=== PATIENT | male | born 1945 | race Caucasian/White ===

== ENCOUNTER 2018-07-03 12:57 | Inpatient (IN) | payer OTHER ==
[2018-07-03 10:41] VITALS: BMI 30.7
[2018-07-04] MEDS ORDERED: ROCURONIUM BROMIDE 50 MG/5 ML VIAL ONE ×2 (09:20→12:33)
[2018-07-04] MEDS ORDERED: PROPOFOL 20 ML ONE ×3 (09:20→14:35)
[2018-07-04] MEDS ORDERED: MIDAZOLAM HCL 2 MG/2 ML SINGLE DOSE VIAL ONE (09:20)
[2018-07-04] MEDS ORDERED: LIDOCAINE HCL/PF 2% SDV 5ML VIAL ONE (09:21)
[2018-07-04] MEDS ORDERED: BUPIVACAINE LIPOSOME/PF (EXPAREL) 266 MG/20 ML VIAL NR ONE ×3 (09:30→14:22)
--- NOTE | 2018-07-04 10:12 | HP ---
History & Physical Update - History History: No Change - Physical Physical: No Change - Assessment Assessment: No Change - Plan Plan: No Change (no change since visit with garbage pick up worker on 06/27/18)
[2018-07-04] MEDS ORDERED: morphine SULFATE/Preservative Free 0.5 MG/ML (1cc Syringe) ONE (10:19)
[2018-07-04] MEDS ORDERED: VANCOMYCIN 1,000 MG VIAL (RESTRICTED TO ID ONLY) ONE ×2 (10:45→11:09)
[2018-07-04] MEDS ORDERED: SODIUM CHLORIDE 0.9% P/F 10 ML VIAL IJ ONE ×3 (11:05→14:18)
[2018-07-04] MEDS ORDERED: ceFAZolin SODIUM 1 GM VIAL ONE ×2 (11:05→14:18)
[2018-07-04] MEDS ORDERED: ePHEDrine SULFATE 50 MG/1 ML AMPULE ONE ×2 (11:06→13:09)
[2018-07-04] MEDS ORDERED: ceFAZolin SODIUM 1 GM VIAL IVPB ONE (11:08)
[2018-07-04] MEDS ORDERED: VANCOMYCIN 1,000 MG VIAL (RESTRICTED TO ID ONLY) IVPB ONE (11:10)
[2018-07-04] MEDS ORDERED: LIDOCAINE 1%/EPI 1:100000 (50 ML MULTI DOSE VIAL) NR ONE (11:12)
[2018-07-04] MEDS ORDERED: THROMBIN (BOVINE) 5,000 UNIT VIAL TP ONE (11:25)
[2018-07-04] MEDS ORDERED: GELATIN, ABSORBABLE 12-7MM EACH SPONGE TP ONE (11:25)
[2018-07-04] MEDS ORDERED: HYDROGEN PEROXIDE 473 ML PO ONE (12:00)
[2018-07-04] MEDS ORDERED: BACITRACIN 50,000 UNITS VIAL TP ONE ×2 (13:00)
[2018-07-04] MEDS ORDERED: GENTAMICIN SO4 80 MG/2 ML VIAL IVPB ONE ×2 (13:00)
[2018-07-04] MEDS ORDERED: BUPIVACAINE HCL/PF 0.25% (2.5MG/ML) 10 ML VIAL IJ ONE ×2 (13:11→14:22)
[2018-07-04] MEDS ORDERED: NEOSTIGMINE METHYLSULFATE 0.5 MG/1 ML - 10 ML MDV ONE (13:52)
[2018-07-04] MEDS ORDERED: GLYCOPYRROLATE 0.2 MG/1 ML VIAL ONE (13:52)
[2018-07-04] MEDS ORDERED: ceFAZolin 2 GRAM PREMIX BAG IVPB ONE (14:19)
[2018-07-04] MEDS ORDERED: ONDANSETRON 4 MG/2 ML VIAL ONE (14:21)
[2018-07-04] MEDS ORDERED: DEXAMETHASONE SOD PHOSPHATE 4 MG/1 ML VIAL ONE (14:21)
[2018-07-04] MEDS ORDERED: diphenhydrAMINE HCL 25 MG CAPSULE (FP) PO PRN (15:22)
[2018-07-04] MEDS ORDERED: PROMETHAZINE HCL 25 MG/1 ML VIAL IVPB PRN (15:29)
[2018-07-04] MEDS ORDERED: DEXAMETHASONE SOD PHOSPHATE 4 MG/1 ML VIAL IVPUSH PRN (15:29)
[2018-07-04] MEDS ORDERED: ONDANSETRON 4 MG/2 ML VIAL IVPUSH PRN ×2 (15:29→18:22)
[2018-07-04] MEDS ORDERED: LACTATED RINGERS SOLUTION 1,000 ML IV SCH (15:30)
[2018-07-04] MEDS ORDERED: LACTATED RINGERS SOLUTION 1,000 ML/1,000 ML INFUS.BAG IV SCH (15:30)
[2018-07-04] MEDS ORDERED: HYDROmorphone *PCA* 10MG/50ML DISP.SYRIN PCA SCH (15:30)
--- NOTE | 2018-07-04 15:37 | OP ---
Operative Note - Note: Operative Date: 07/04/18 Pre-Operative Diagnosis: Spinal stenosis, lumbar radiculopathy Operation: Exploration of spinal fusion, removal of hardware, re-op L4-L5, L5- S1 Laminrctomies, L3-L4 transpedicle approach and cage with L3-S1 arthrodesis with pedicle screws Post-Operative Diagnosis: Same as Pre-op Surgeon: Emilio Denton Geriatrics Physician: Tri Dennis Anesthesiologist/HORTICULTURAL SPECIALTY GROWER INSIDE: Tyrone Ibarra Anesthesia: General, Spinal Estimated Blood Loss (mls): 500 Drains & Tubes with Location: CLARICE right paravetebral Drains, Volume Out (mls): 400 (comer) Fluid Volume Replaced (mls): 2,000 Operative Report Dictated: Yes
[2018-07-04] MEDS: ACETAMINOPHEN 1000 MG/100 ML VIAL (NON FORMULARY) IVPB SCH ×2 (17:00→22:24)
[2018-07-04] MEDS: SODIUM CHLORIDE 1,000 ML IV SCH (17:00)
[2018-07-04] MEDS: CEFAZOLIN 1 GM/D5W 1 GM/50 ML BAG IVPB SCH (20:11)
[2018-07-04] MEDS: DOCUSATE SODIUM 100 MG CAPSULE (FP) PO SCH (22:23)
[2018-07-04] MEDS: HEPARIN NA (PORCINE) 5,000 UNITS/ML 1ML VIAL SQ SCH (22:23)
[2018-07-05] MEDS: CEFAZOLIN 1 GM/D5W 1 GM/50 ML BAG IVPB SCH ×3 (01:21→17:31)
[2018-07-05 02:13] LABS: BASO % 0.1 % (0-2.0); HEMATOCRIT 36.1 % (35.4-49); HEMOGLOBIN 12.2 GM/dL (11.7-16.9); LYMPH % 5.7 % (8-40); MCH 30.6 pg (25.7-33.7); MCHC 33.9 g/dl (32.0-35.9); MEAN CELL VOLUME 90.1 fl (80-96); MONO % 6.7 % (3.8-10.2); NEUT % 87.5 % (42.8-82.8); PLATELET COUNT 183 K/MM3 (134-434); RBC 4.01 M/mm3 (4.00-5.60); RDW 14.8 % (11.9-15.9); WHITE BLOOD COUNT 15.8 K/mm3 (4.0-10.0)
[2018-07-05] MEDS ORDERED: SODIUM CHLORIDE 1,000 ML IV STA (02:25)
[2018-07-05] MEDS: SODIUM CHLORIDE 1,000 ML IV SCH ×2 (03:19→22:04)
[2018-07-05] MEDS: HEPARIN NA (PORCINE) 5,000 UNITS/ML 1ML VIAL SQ SCH ×4 (05:25→21:23)
[2018-07-05] MEDS: ACETAMINOPHEN 1000 MG/100 ML VIAL (NON FORMULARY) IVPB SCH ×2 (05:25→11:42)
[2018-07-05] MEDS: DOCUSATE SODIUM 100 MG CAPSULE (FP) PO SCH ×4 (05:25→21:22)
[2018-07-05 07:56] LABS: HEMATOCRIT 34.6 % (35.4-49); MCH 29.3 pg (25.7-33.7); MCHC 31.7 g/dl (32.0-35.9); MEAN CELL VOLUME 92.4 fl (80-96); MEAN PLT VOLUME 10.5 fl (7.5-11.1); PLATELET COUNT 147 K/MM3 (134-434); RBC 3.74 M/mm3 (4.00-5.60)
--- NOTE | 2018-07-05 08:05 | PN ---
Progress Note (short form) - Note Progress Note: Surgery POD #1 s/p L3-S1 laminectomy/revision fusion patient seen and examined at bedside with no complaints. Patient states he was comfortable overnight and his pain is controlled. He is tolerating clears but did not feel like eating last night. He denies any CP, SOB, N/V fever, chills or new radicular symptoms. Vital Signs Temp 97.6 F 07/05/18 04:35 Pulse 91 H 07/05/18 04:35 Resp 18 07/05/18 04:35 BP 98/88 07/05/18 04:35 Pulse Ox 2 L 07/04/18 21:00 Intake & Output 07/04/18 07/04/18 07/05/18 11:59 23:59 11:59 Intake Total 2800 2350 Output Total 2030 150 Balance 770 2200 Intake: IV 2800 2250 Normal Saline - 1,000 ml 1000 @ 1000 mls/hr IV ASDIR STA Rx#:[id number] Normal Saline - 1,000 ml 200 1250 @ 125 mls/hr IV ASDIR DANIELLA Rx#:[id number] IVPB 100 Output: Drainage 630 150 Right Buttocks 350 150 Urine 900 Comer 200 Estimated Blood Loss 500 Other: Voiding Method Urinal Indwelling Catheter CBC, BMP 07/05/18 06:30 07/05/18 06:30 PE: A&Ox3, NAD Unlabored resp on 1L NC Lumbar spine, dressing C/D/I with surrounding tissue intact, no tracking erythema, edema, collection or evidence of dc, drain secure at right paravetebral area with @240cc/12hr SS discharge. b/l LE compartments soft, supple and non-tender with sensation to light touch intact throughout, Patient unable to dorsi/plantar flex or actively lift leg off bed at baseline. Problem List - Problems (1) S/P lumbar spinal fusion Assessment/Plan: POD# 1 L3-S1 lami with fusion doing well in patient with previous CVA and right sided weakness, has been confined to a wheelchair for @ 2 years now. 1) OOB with TLSO brace and PT to evaluate for level of function- WBAT, up to chair for meals. 2) D/c comer as ordered 3) Continue DVT prophylaxis with SQ heparin, scds and oob 4) Continue ABX while drain in. Evaluation and plan discussed with Dr Denton Code(s): Z98.1 - ARTHRODESIS STATUS
[2018-07-05 08:17] LABS: ANION GAP 9 MMOL/L (8-16); BLOOD UREA NITROGEN 21 mg/dL (7-18); CALCIUM 7.7 mg/dL (8.5-10.1); CHLORIDE 107 mmol/L (98-107); CO2 23 mmol/L (21-32); GLUCOSE,RANDOM 116 mg/dL (74-106); POTASSIUM 4.9 mmol/L (3.5-5.1); SODIUM 139 mmol/L (136-145)
--- NOTE | 2018-07-05 08:17 | PN ---
Progress Note (short form) - Note Progress Note: Post op day#1.Lumber spinal exploration with removal of hardware L4-S1 and L3- S1 decompression with fusion and cage placement under GA with spinal duramorph and TLIP block by the surgeon with exparel uneventful.Patient stable and has minimal pain.Patient on PRN pain medication.No any anesthesia related problem.Patient DC from the anesthesia care.
[2018-07-05] MEDS: FERROUS SO4 325 MG TABLET (FP) PO SCH (10:21)
[2018-07-05] MEDS: FOLIC ACID 1 MG TABLET (FP) PO SCH (10:21)
--- NOTE | 2018-07-05 11:27 | PN ---
Progress Note, Physician Chief Complaint: Spinal Stenosis History of Present Illness: Operative Date: 07/04/18 Pre-Operative Diagnosis: Spinal stenosis, lumbar radiculopathy Operation: Exploration of spinal fusion, removal of hardware, re-op L4-L5, L5- S1 Laminrctomies, L3-L4 transpedicle approach and cage with L3-S1 arthrodesis with pedicle screws Post-Operative Diagnosis: Same as Pre-op Surgeon: Emilio Denton Orthotic/Prosthetic Practitioner: Tri Dennis Anesthesiologist/BILLPOSTER: Tyrone Ibarra no pain at this time Physical therapy still to see the patient - Current Medication List Current Medications: Active Medications Acetaminophen (Tylenol -) 650 mg PO Q6H PRN PRN Reason: FEVER Dexamethasone Sodium Phosphate (Decadron Injection -) 4 mg IVPUSH ONCE PRN PRN Reason: NAUSEA AND/OR VOMITING Diphenhydramine HCl (Benadryl Injection -) 12.5 mg IVPUSH ONCE PRN PRN Reason: FOR ITCHING Docusate Sodium (Colace -) 100 mg PO TID [facility] Last Admin: 07/05/18 05:25 Dose: 100 mg Ferrous Sulfate (Feosol -) 325 mg PO DAILY [facility] Last Admin: 07/05/18 10:21 Dose: 325 mg Folic Acid (Folic Acid -) 1 mg PO DAILY [facility] Last Admin: 07/05/18 10:21 Dose: 1 mg Heparin Sodium (Porcine) (Heparin -) 5,000 unit SQ TID [facility] Last Admin: 07/05/18 05:25 Dose: 5,000 unit Cefazolin Sodium (Ancef 1 Gm Premixed Ivpb -) 1 gm in 50 mls @ 100 mls/hr IVPB Q8H-IV [facility] Last Admin: 07/05/18 10:21 Dose: 100 mls/hr Sodium Chloride (Normal Saline -) 1,000 mls @ 125 mls/hr IV ASDIR [facility] Last Admin: 07/05/18 03:19 Dose: 125 mls/hr Ondansetron HCl (Zofran Injection) 4 mg IVPUSH Q6H PRN PRN Reason: NAUSEA Oxycodone HCl (Roxicodone -) 5 mg PO Q4H PRN PRN Reason: PAIN LEVEL 1-5 Oxycodone HCl (Roxicodone -) 10 mg PO Q4H PRN PRN Reason: PAIN LEVEL 6-10 Promethazine HCl (Phenergan Injection -) 12.5 mg IVPB Q6H PRN PRN Reason: NAUSEA AND/OR VOMITING - Objective Vital Signs: Vital Signs Temperature 97.9 F 07/05/18 10:00 Pulse Rate 108 H 07/05/18 10:00 Respiratory Rate 18 07/05/18 10:00 Blood Pressure 96/59 L 07/05/18 10:00 O2 Sat by Pulse Oximetry (%) 2 L 07/04/18 21:00 Constitutional: Yes: Well Nourished, No Distress, Calm Cardiovascular: Yes: Regular Rate and Rhythm Respiratory: Yes: Regular Gastrointestinal: Yes: Normal Bowel Sounds, Soft, Abdomen, Obese Musculoskeletal: Yes: Back Pain, Muscle Weakness Extremities: Yes: WNL Edema: No Peripheral Pulses WNL: Yes Neurological: Yes: Alert, Oriented Psychiatric: Yes: Alert, Oriented Labs: CBC, BMP 07/05/18 06:30 07/05/18 06:30 Problem List - Problems (1) Lumbar stenosis with neurogenic claudication Assessment/Plan: -POD #1 -Seen by Surgery and anesthesia -physical therapy to see the patient Code(s): M48.062 - SPINAL STENOSIS, LUMBAR REGION WITH NEUROGENIC CLAUDICATION (2) Status post lumbar surgery Assessment/Plan: -POD #1 -Seen by Surgery and anesthesia -physical therapy to see the patient Code(s): Z98.890 - OTHER SPECIFIED POSTPROCEDURAL STATES (3) Leukocytosis Assessment/Plan: -chronic -will have hematology consult -monitor trend Code(s): D72.829 - ELEVATED WHITE BLOOD CELL COUNT, UNSPECIFIED Assessment/Plan see problem list DVT prophylaxis Physical therapy
[2018-07-05] MEDS: oxyCODONE HCL 5 MG TABLET PO PRN ×3 (13:23→20:37)
--- NOTE | 2018-07-05 14:03 | CONSULT ---
Consult Consult Specialty:: Hematology-Oncology Referred by:: COLETTE Kearns Reason for Consultation:: leucocytosis - History of Present Illness Chief Complaint: immobility History of Present Illness: 73 yr old man with hx of multiple falls requiring spinal surgery POD# 1 from removal of hardware, re-op L4-L5, L5-S1 Laminrctomies, L3-L4 transpedicle approach and cage with L3-S1 arthrodesis with pedicle screws. Feeling well denies fevers, chest pain, sob, cough, dysuria, diarrhea, constipation, LE edema since surgery and prior to surgery. Pt has no complaints, awaiting PT evaluation. Heme-Onc consulted for leucoytosis. denies hx of malignancies or ever being told he had abnormal labs. last colonoscopy 4-5 yrs ago at [facility](pt does not recall GI 's name) but does not recall being told that there was any pathology. denies fevers, chills, weightloss, night sweats, bruising, bleeding, swollen glands, LAD in the last 3 months. obtained labs from 06/26/2017 and 02/2018 from PCP's office, placed in chart, no leucocytosis, normal diff. TraveL: has been to 3x in the last 3 months due to sister's Pmhx: stroke in 1995, cataracts Surg Hx; Spinal surgery in 2010, right forearm surgery in the s. Soc hx: quit smoking 12/26/2017, started age 10, smoked 1ppk/day. drank 1/2 bottle of loly rodriguez black label/week, quit 12/26/2017. snorted and smoked crack and cocaine for 7 yrs in the s, quite >10yrs ago. denied IVDU Fmhx: father lived to be 100 and used smoke till the end. mother lived into her late 80's, had DM and HTN. 3 older brothers - 2 with throat cancer dx'd and in their 50's, both drank and smoked. 1 sister . - History Source History Provided By: Patient Limitations to Obtaining History: No Limitations - Alcohol/Substance Use Hx Alcohol Use: No - Smoking History Smoking history: Former smoker Have you smoked in the past 12 months: No Aproximately how many cigarettes per day: 2 If you are a former smoker, when did you quit?: 1year Home Medications - Allergies Allergies/Adverse Reactions: Allergies Allergy/AdvReac Type Severity Reaction Status Date / Time No Known Allergies Allergy Verified 07/04/18 09:53 - Home Medications Home Medications: Ambulatory Orders Acetaminophen [Tylenol .Regular Strength -] 650 mg PO Q6H PRN tablet 07/09/18 Docusate Sodium [Colace -] 100 mg PO TID capsule 07/09/18 Ferrous Sulfate [Feosol] 325 mg PO DAILY ud 07/09/18 Folic Acid - 1 mg PO DAILY tablet 07/09/18 Heparin - 5,000 unit SQ TID vial 07/09/18 Methylnaltrexone [place] [Relistor] 12 mg SQ DAILY #30 kit 07/09/18 Sennosides [Senna -] 2 tab PO HS tablet 07/09/18 oxyCODONE HCL [Roxicodone -] 5 mg PO Q4H PRN tablet MDD 6 07/09/18 oxyCODONE HCL [Roxicodone -] 10 mg PO Q4H PRN tablet MDD 6 07/09/18 Family Disease History - Family Disease History Family Disease History: Diabetes: Mother, [place]: Brother (2 older brothers with throat cancer) Review of Systems - Review of Systems Constitutional: denies: Fever, Lethargy, Loss of Appetite, Night Sweats, Unintentional Wgt. Loss Eyes: reports: No Symptoms HENT: denies: Difficult Swallowing, Mouth Swelling Neck: denies: No Symptoms, Lumps, Tenderness Cardiovascular: denies: Chest Pain, Edema, Palpitations, Shortness of Breath Respiratory: denies: Cough Gastrointestinal: denies: Abdominal Pain, Diarrhea Genitourinary: denies: Dysuria, Hematuria, Incontinence Breasts: reports: No Symptoms Reported Integumentary: denies: Erythema, Lesions, Pruritis, Rash Neurological: denies: Headache, Incoordination, Seizure Hematology/Lymphatic: denies: Easily Bruised, Excessive Bleeding Physical Exam Vital Signs: Vital Signs Temperature 97.9 F 07/05/18 10:00 Pulse Rate 108 H 07/05/18 10:00 Respiratory Rate 18 07/05/18 10:00 Blood Pressure 96/59 L 07/05/18 10:00 O2 Sat by Pulse Oximetry (%) 96 07/05/18 09:00 Constitutional: Yes: Well Nourished, No Distress, Calm Eyes: Yes: Conjunctiva Clear, EOM Intact HENT: Yes: Atraumatic, Normocephalic Neck: Yes: Supple, Trachea Midline. No: Tenderness, Thyromegaly Cardiovascular: Yes: Regular Rate and Rhythm, Murmur (LORI) Respiratory: Yes: Regular, CTA Bilaterally Gastrointestinal: Yes: Normal Bowel Sounds, Soft, Abdomen, Obese Renal/: Yes: Other (comer in place). No: CVA Tenderness - Left, CVA Tenderness - Right Breast(s): Yes: WNL. No: Discharge from Nipple, Gynecomastia, Mass, Skin Changes Musculoskeletal: Yes: Muscle Weakness (b/l LE below knee with weakness, no dorsi or plantar flexion, 0/5 strength to extension b/l at hip and below) Edema: No Peripheral Pulses WNL: Yes Wound/Incision: Yes: Clean/Dry, Dressing Dry and Intact (no surrounding erythema , sacrum intact) Neurological: Yes: Alert, Oriented, Cran Nerves II-XII Intact Labs: CBC, BMP 07/05/18 06:30 07/05/18 06:30 Assessment/Plan 73 yr old man POD#1 from spinal surgery awaiting PT evaluation with no complaints. Problem List: Spinal surgery POD#1 leucytosis normocytic anemia Plan: - As per chart review prior leucocytosis in 08/2010, during pt's previous spinal surgery. - leucocytosis likely post-op reactive, check U/A and chest xray to r/o infection - rec d/c comer if no longer needed - trend with diff to monitor post-op - CBC from Dr. Garcia's office 06/26/2018: 10.2>15.3/47.1<188, normal diff. leukocytosis is not chronic. - anemia likely due to acute blood loss during surgery
[2018-07-05 14:55] LABS: URINE APPEARANCE CLEAR; URINE BILIRUBIN NEGATIVE (<2.0 mg/dL); URINE COLOR LTYELLOW; URINE GLUCOSE (UA) NEGATIVE (NEGATIVE); URINE KETONE NEGATIVE (NEGATIVE); URINE LEUK ESTERASE NEGATIVE (NEGATIVE); URINE NITRITE NEGATIVE (NEGATIVE); URINE PROTEIN NEGATIVE (NEGATIVE); URINE UROBILINOGEN NEGATIVE mg/dL (0.2-1.0)
[2018-07-05] MEDS: ACETAMINOPHEN 325 MG TABLET (FP) PO PRN (20:37)
--- NOTE | 2018-07-05 23:03 | PN ---
Teaching Attending Note Name of Resident: Andreina Leiva ATTENDING PHYSICIAN STATEMENT I saw and evaluated the patient. I reviewed the resident's note and discussed the case with the resident. I agree with the resident's findings and plan as documented. ASSESSMENT AND PLAN: 73 y/o patient with spinal stenosis, lumbar radiculopathy Underwent exploration of spinal fusion, removal of hardware, re-op L4-L5, L5-S1 Laminrctomies, L3-L4 transpedicle approach and cage with L3-S1 arthrodesis with pedicle screws Leukocytosis with neutrophilia --suspect reactive , post op. No obvious s/s of infection
[2018-07-06] MEDS: CEFAZOLIN 1 GM/D5W 1 GM/50 ML BAG IVPB SCH ×3 (01:18→17:58)
[2018-07-06] MEDS: oxyCODONE HCL 5 MG TABLET PO PRN ×5 (01:18→22:12)
[2018-07-06] MEDS: DOCUSATE SODIUM 100 MG CAPSULE (FP) PO SCH ×3 (05:37→21:45)
[2018-07-06] MEDS: HEPARIN NA (PORCINE) 5,000 UNITS/ML 1ML VIAL SQ SCH ×3 (05:37→21:48)
--- NOTE | 2018-07-06 09:43 | PN ---
Progress Note, Physician - Current Medication List Current Medications: Active Medications Acetaminophen (Tylenol -) 650 mg PO Q6H PRN PRN Reason: FEVER Last Admin: 07/05/18 20:37 Dose: 650 mg Dexamethasone Sodium Phosphate (Decadron Injection -) 4 mg IVPUSH ONCE PRN PRN Reason: NAUSEA AND/OR VOMITING Diphenhydramine HCl (Benadryl Injection -) 12.5 mg IVPUSH ONCE PRN PRN Reason: FOR ITCHING Docusate Sodium (Colace -) 100 mg PO TID [facility] Last Admin: 07/06/18 05:37 Dose: Not Given Ferrous Sulfate (Feosol -) 325 mg PO DAILY [facility] Last Admin: 07/05/18 10:21 Dose: 325 mg Folic Acid (Folic Acid -) 1 mg PO DAILY [facility] Last Admin: 07/05/18 10:21 Dose: 1 mg Heparin Sodium (Porcine) (Heparin -) 5,000 unit SQ TID [facility] Last Admin: 07/06/18 05:37 Dose: 5,000 unit Cefazolin Sodium (Ancef 1 Gm Premixed Ivpb -) 1 gm in 50 mls @ 100 mls/hr IVPB Q8H-IV [facility] Last Admin: 07/06/18 01:18 Dose: 100 mls/hr Sodium Chloride (Normal Saline -) 1,000 mls @ 125 mls/hr IV ASDIR [facility] Last Admin: 07/05/18 22:04 Dose: Not Given Ondansetron HCl (Zofran Injection) 4 mg IVPUSH Q6H PRN PRN Reason: NAUSEA Oxycodone HCl (Roxicodone -) 5 mg PO Q4H PRN PRN Reason: PAIN LEVEL 1-5 Last Admin: 07/05/18 20:37 Dose: 5 mg Oxycodone HCl (Roxicodone -) 10 mg PO Q4H PRN PRN Reason: PAIN LEVEL 6-10 Last Admin: 07/06/18 05:37 Dose: 10 mg Promethazine HCl (Phenergan Injection -) 12.5 mg IVPB Q6H PRN PRN Reason: NAUSEA AND/OR VOMITING - Objective Vital Signs: Vital Signs Temperature 98.2 F 07/06/18 05:00 Pulse Rate 105 H 07/06/18 05:00 Respiratory Rate 20 07/06/18 05:00 Blood Pressure 91/71 07/06/18 05:00 O2 Sat by Pulse Oximetry (%) 95 07/05/18 20:30 Labs: CBC, BMP 07/05/18 06:30 07/05/18 06:30 Problem List - Problems (1) Status post lumbar surgery Assessment/Plan: -POD #2 -Still with pain --on meds --per NS -DVT prophylaxis -Physical therapy Code(s): Z98.890 - OTHER SPECIFIED POSTPROCEDURAL STATES (2) Constipation Assessment/Plan: -Add Senna Code(s): K59.00 - CONSTIPATION, UNSPECIFIED (3) Leukocytosis Assessment/Plan: -Chronic -Maybe MDS -Hem on case Code(s): D72.829 - ELEVATED WHITE BLOOD CELL COUNT, UNSPECIFIED
[2018-07-06] MEDS: FERROUS SO4 325 MG TABLET (FP) PO SCH (10:26)
[2018-07-06] MEDS: FOLIC ACID 1 MG TABLET (FP) PO SCH (10:26)
[2018-07-06] MEDS: SENNOSIDES 8.6MG TABLET (FP) PO SCH (21:45)
[2018-07-07] MEDS: SODIUM CHLORIDE 1,000 ML IV SCH (00:22)
[2018-07-07] MEDS: CEFAZOLIN 1 GM/D5W 1 GM/50 ML BAG IVPB SCH ×3 (01:18→17:23)
[2018-07-07] MEDS: HEPARIN NA (PORCINE) 5,000 UNITS/ML 1ML VIAL SQ SCH ×3 (05:52→21:44)
[2018-07-07] MEDS: DOCUSATE SODIUM 100 MG CAPSULE (FP) PO SCH ×3 (05:53→21:46)
[2018-07-07] MEDS: FOLIC ACID 1 MG TABLET (FP) PO SCH (09:16)
[2018-07-07] MEDS: oxyCODONE HCL 5 MG TABLET PO PRN ×3 (09:16→18:48)
[2018-07-07] MEDS: FERROUS SO4 325 MG TABLET (FP) PO SCH (09:16)
--- NOTE | 2018-07-07 09:22 | PN ---
Progress Note, Physician - Current Medication List Current Medications: Active Medications Acetaminophen (Tylenol -) 650 mg PO Q6H PRN PRN Reason: FEVER Last Admin: 07/05/18 20:37 Dose: 650 mg Dexamethasone Sodium Phosphate (Decadron Injection -) 4 mg IVPUSH ONCE PRN PRN Reason: NAUSEA AND/OR VOMITING Diphenhydramine HCl (Benadryl Injection -) 12.5 mg IVPUSH ONCE PRN PRN Reason: FOR ITCHING Docusate Sodium (Colace -) 100 mg PO TID [facility] Last Admin: 07/07/18 05:53 Dose: 100 mg Ferrous Sulfate (Feosol -) 325 mg PO DAILY [facility] Last Admin: 07/07/18 09:16 Dose: 325 mg Folic Acid (Folic Acid -) 1 mg PO DAILY [facility] Last Admin: 07/07/18 09:16 Dose: 1 mg Heparin Sodium (Porcine) (Heparin -) 5,000 unit SQ TID [facility] Last Admin: 07/07/18 05:52 Dose: 5,000 unit Cefazolin Sodium (Ancef 1 Gm Premixed Ivpb -) 1 gm in 50 mls @ 100 mls/hr IVPB Q8H-IV [facility] Last Admin: 07/07/18 09:16 Dose: 100 mls/hr Sodium Chloride (Normal Saline -) 1,000 mls @ 125 mls/hr IV ASDIR [facility] Last Admin: 07/07/18 00:22 Dose: Not Given Ondansetron HCl (Zofran Injection) 4 mg IVPUSH Q6H PRN PRN Reason: NAUSEA Oxycodone HCl (Roxicodone -) 5 mg PO Q4H PRN PRN Reason: PAIN LEVEL 1-5 Last Admin: 07/05/18 20:37 Dose: 5 mg Oxycodone HCl (Roxicodone -) 10 mg PO Q4H PRN PRN Reason: PAIN LEVEL 6-10 Last Admin: 07/07/18 09:16 Dose: 10 mg Promethazine HCl (Phenergan Injection -) 12.5 mg IVPB Q6H PRN PRN Reason: NAUSEA AND/OR VOMITING Senna (Senna -) 2 tab PO HS [facility] Last Admin: 07/06/18 21:45 Dose: Not Given - Objective Vital Signs: Vital Signs Temperature 98 F 01/13/19 06:39 Pulse Rate 98 H 07/07/18 06:39 Respiratory Rate 20 07/07/18 06:39 Blood Pressure 129/63 07/07/18 06:39 O2 Sat by Pulse Oximetry (%) 95 07/06/18 21:00 Cardiovascular: Yes: Regular Rate and Rhythm Respiratory: Yes: Regular, CTA Bilaterally Gastrointestinal: Yes: Normal Bowel Sounds, Soft Labs: CBC, BMP 07/05/18 06:30 07/05/18 06:30 Problem List - Problems (1) Status post lumbar surgery Assessment/Plan: -POD #2 -Still with pain --on meds --per NS -DVT prophylaxis -Physical therapy Code(s): Z98.890 - OTHER SPECIFIED POSTPROCEDURAL STATES (2) Constipation Assessment/Plan: -Add Senna Code(s): K59.00 - CONSTIPATION, UNSPECIFIED (3) Leukocytosis Assessment/Plan: -Chronic -Maybe MDS -Hem on case Code(s): D72.829 - ELEVATED WHITE BLOOD CELL COUNT, UNSPECIFIED
[2018-07-07 09:35] LABS: BASO % 0.3 % (0-2.0); HEMATOCRIT 29.9 % (35.4-49); HEMOGLOBIN 10.2 GM/dL (11.7-16.9); LYMPH % 15.1 % (8-40); MCH 30.9 pg (25.7-33.7); MCHC 34.2 g/dl (32.0-35.9); MEAN CELL VOLUME 90.2 fl (80-96); MONO % 13.8 % (3.8-10.2); NEUT % 69.8 % (42.8-82.8); PLATELET COUNT 170 K/MM3 (134-434); RBC 3.31 M/mm3 (4.00-5.60); RDW 14.7 % (11.9-15.9); WHITE BLOOD COUNT 13.8 K/mm3 (4.0-10.0)
[2018-07-07 09:47] LABS: INR 1.06 (0.83-1.09); PROTHROMBIN TIME (PATIENT) 12.5 SEC (9.7-13.0)
[2018-07-07 09:49] LABS: ACTIVATED PTT 31.5 SECONDS (25.2-36.5)
[2018-07-07 10:18] LABS: ALBUMIN 2.8 g/dl (3.4-5.0); ALK PHOS 79 U/L (45-117); ANION GAP 8 MMOL/L (8-16); BILIRUBIN,TOTAL 0.7 mg/dL (0.2-1); BLOOD UREA NITROGEN 16 mg/dL (7-18); CALCIUM 8.4 mg/dL (8.5-10.1); CHLORIDE 104 mmol/L (98-107); CO2 27 mmol/L (21-32); CREATININE 0.6 mg/dL (0.55-1.3); GLUCOSE,RANDOM 137 mg/dL (74-106); POTASSIUM 4.6 mmol/L (3.5-5.1); SGOT/AST 28 U/L (15-37); SGPT/ALT 22 U/L (13-61); SODIUM 138 mmol/L (136-145)
[2018-07-07] MEDS: SENNOSIDES 8.6MG TABLET (FP) PO SCH (21:46)
[2018-07-08] MEDS: CEFAZOLIN 1 GM/D5W 1 GM/50 ML BAG IVPB SCH ×3 (01:26→17:31)
[2018-07-08] MEDS: oxyCODONE HCL 5 MG TABLET PO PRN ×4 (01:42→21:20)
[2018-07-08] MEDS: HEPARIN NA (PORCINE) 5,000 UNITS/ML 1ML VIAL SQ SCH ×3 (05:51→21:19)
[2018-07-08] MEDS: DOCUSATE SODIUM 100 MG CAPSULE (FP) PO SCH ×3 (05:51→21:19)
[2018-07-08 07:36] LABS: BASO % 0.7 % (0-2.0); EOS % 2.6 % (0-4.5); HEMOGLOBIN 9.6 GM/dL (11.7-16.9); LYMPH % 18.3 % (8-40); MCH 29.1 pg (25.7-33.7); MCHC 31.9 g/dl (32.0-35.9); MEAN CELL VOLUME 91.1 fl (80-96); MONO % 14.9 % (3.8-10.2); NEUT % 63.5 % (42.8-82.8); PLATELET COUNT 186 K/MM3 (134-434); RBC 3.29 M/mm3 (4.00-5.60); WHITE BLOOD COUNT 12.8 K/mm3 (4.0-10.0)
[2018-07-08 08:35] LABS: ALBUMIN 2.7 g/dl (3.4-5.0); ALK PHOS 81 U/L (45-117); ANION GAP 6 MMOL/L (8-16); BILIRUBIN,TOTAL 0.6 mg/dL (0.2-1); BLOOD UREA NITROGEN 15 mg/dL (7-18); CALCIUM 8.7 mg/dL (8.5-10.1); CHLORIDE 101 mmol/L (98-107); CO2 29 mmol/L (21-32); CREATININE 0.6 mg/dL (0.55-1.3); GLUCOSE,RANDOM 106 mg/dL (74-106); POTASSIUM 4.6 mmol/L (3.5-5.1); SGOT/AST 25 U/L (15-37); SGPT/ALT 22 U/L (13-61); SODIUM 136 mmol/L (136-145)
[2018-07-08] MEDS ORDERED: oxyCODONE HCL 5 MG TABLET PO PRN (09:11)
--- NOTE | 2018-07-08 10:39 | PN ---
Progress Note (short form) - Note Progress Note: 73yo M seen and examined at bedside. Pt continues to complain of lumbar pain. Pt denies n/v, fever, chills. Pt denies worsening of leg weakness. No headaches. Last Vital Signs Temp Pulse Resp BP Pulse Ox 97.7 F 110 H 18 100/47 L 96 07/08/18 06:00 07/08/18 06:00 07/08/18 06:00 07/08/18 06:00 07/07/18 21:00 CBC, BMP 07/08/18 06:30 07/08/18 06:30 PE: Gen: A&O x 3 Resp: breathing comfortably Back: incision is clean with no drainage, drain in place with serosanguinous drainage. Output: 425ml Ext: no edema, no numbness, weakness unchanged. Problem List - Problems (1) Lumbar stenosis with neurogenic claudication Assessment/Plan: Plan -will change drain to biliary bag -continue pain meds -PT and rehab placement Will continue to follow. Code(s): M48.062 - SPINAL STENOSIS, LUMBAR REGION WITH NEUROGENIC CLAUDICATION
[2018-07-08] MEDS: FERROUS SO4 325 MG TABLET (FP) PO SCH (10:42)
[2018-07-08] MEDS: FOLIC ACID 1 MG TABLET (FP) PO SCH (10:42)
--- NOTE | 2018-07-08 10:56 | PN ---
Progress Note, Physician Chief Complaint: Spinal Stenosis History of Present Illness: Operative Date: 07/04/18 Pre-Operative Diagnosis: Spinal stenosis, lumbar radiculopathy Operation: Exploration of spinal fusion, removal of hardware, re-op L4-L5, L5- S1 Laminrctomies, L3-L4 transpedicle approach and cage with L3-S1 arthrodesis with pedicle screws Post-Operative Diagnosis: Same as Pre-op Surgeon: Emilio Denton Terminal System Operator: Tri Dennis Anesthesiologist/PRODUCT HANDLER: Tyrone Ibarra c/o of lumbar pain Seen by Physical therapy Awaiting rehab acceptance and placement - Current Medication List Current Medications: Active Medications Acetaminophen (Tylenol -) 650 mg PO Q6H PRN PRN Reason: FEVER Last Admin: 07/05/18 20:37 Dose: 650 mg Dexamethasone Sodium Phosphate (Decadron Injection -) 4 mg IVPUSH ONCE PRN PRN Reason: NAUSEA AND/OR VOMITING Diphenhydramine HCl (Benadryl Injection -) 12.5 mg IVPUSH ONCE PRN PRN Reason: FOR ITCHING Docusate Sodium (Colace -) 100 mg PO TID [facility] Last Admin: 07/08/18 05:51 Dose: 100 mg Ferrous Sulfate (Feosol -) 325 mg PO DAILY [facility] Last Admin: 07/08/18 10:42 Dose: 325 mg Folic Acid (Folic Acid -) 1 mg PO DAILY [facility] Last Admin: 07/08/18 10:42 Dose: 1 mg Heparin Sodium (Porcine) (Heparin -) 5,000 unit SQ TID [facility] Last Admin: 07/08/18 05:51 Dose: 5,000 unit Cefazolin Sodium (Ancef 1 Gm Premixed Ivpb -) 1 gm in 50 mls @ 100 mls/hr IVPB Q8H-IV [facility] Last Admin: 07/08/18 10:41 Dose: 100 mls/hr Ondansetron HCl (Zofran Injection) 4 mg IVPUSH Q6H PRN PRN Reason: NAUSEA Oxycodone HCl (Roxicodone -) 5 mg PO Q4H PRN PRN Reason: PAIN LEVEL 1-5 Oxycodone HCl (Roxicodone -) 10 mg PO Q4H PRN PRN Reason: PAIN LEVEL 6-10 Last Admin: 07/08/18 10:41 Dose: 10 mg Promethazine HCl (Phenergan Injection -) 12.5 mg IVPB Q6H PRN PRN Reason: NAUSEA AND/OR VOMITING Senna (Senna -) 2 tab PO HS [facility] Last Admin: 07/07/18 21:46 Dose: 2 tab - Objective Vital Signs: Vital Signs Temperature 97.7 F 07/08/18 06:00 Pulse Rate 110 H 07/08/18 06:00 Respiratory Rate 18 07/08/18 06:00 Blood Pressure 100/47 L 07/08/18 06:00 O2 Sat by Pulse Oximetry (%) 96 07/07/18 21:00 Constitutional: Yes: Well Nourished, No Distress, Calm Cardiovascular: Yes: Regular Rate and Rhythm Respiratory: Yes: Regular Gastrointestinal: Yes: Normal Bowel Sounds, Soft, Abdomen, Obese Musculoskeletal: Yes: Back Pain, Muscle Weakness Edema: No Peripheral Pulses WNL: Yes Wound/Incision: Yes: Dressing Dry and Intact Neurological: Yes: Alert, Oriented Psychiatric: Yes: Alert, Oriented Labs: CBC, BMP 07/08/18 06:30 07/08/18 06:30 INR, PTT INR 1.06 (0.83-1.09) 07/07/18 08:30 Fibrinogen 477.0 mg/dL (238-498) 07/07/18 08:30 Problem List - Problems (1) Lumbar stenosis with neurogenic claudication Assessment/Plan: -POD #4 -Seen by Surgery and anesthesia -physical therapy Code(s): M48.062 - SPINAL STENOSIS, LUMBAR REGION WITH NEUROGENIC CLAUDICATION (2) Status post lumbar surgery Assessment/Plan: -POD #4 -Seen by Surgery and anesthesia -physical therapy -drain changed to biliary bag Code(s): Z98.890 - OTHER SPECIFIED POSTPROCEDURAL STATES (3) Leukocytosis Assessment/Plan: -reactive -hematology consult on board -trending down -monitor trend Code(s): D72.829 - ELEVATED WHITE BLOOD CELL COUNT, UNSPECIFIED Assessment/Plan see problem list DVT prophylaxis Physical therapy
[2018-07-08] MEDS ORDERED: MAGNESIUM CITRATE 300 ML BOTTLE PO ONE (13:11)
[2018-07-08] MEDS ORDERED: SODIUM PHOSPHATE/NA BIPHOS 133 ML ENEMA RC ONE (17:30)
[2018-07-08] MEDS: SENNOSIDES 8.6MG TABLET (FP) PO SCH (21:19)
[2018-07-09] MEDS: CEFAZOLIN 1 GM/D5W 1 GM/50 ML BAG IVPB SCH ×2 (01:12→09:41)
[2018-07-09] MEDS: DOCUSATE SODIUM 100 MG CAPSULE (FP) PO SCH ×2 (05:50→15:29)
[2018-07-09] MEDS: HEPARIN NA (PORCINE) 5,000 UNITS/ML 1ML VIAL SQ SCH ×2 (05:50→15:29)
[2018-07-09] MEDS: oxyCODONE HCL 5 MG TABLET PO PRN ×3 (05:50→15:33)
--- NOTE | 2018-07-09 07:53 | PN ---
Progress Note (short form) - Note Progress Note: Surgery POD #5 s/p L3-S1 laminectomy/revision fusion patient seen and examined at bedside with no complaints. Patient states has been comfortable and his pain is controlled. He is tolerating his diet and has been urinating and moving his bowels. He denies any CP, H/A, SOB, N/V fever, chills or new radicular symptoms. He states he has begun to move his legs more. Vital Signs Temp 97.6 F 07/09/18 10:00 Pulse 81 07/09/18 10:00 Resp 18 07/09/18 10:00 BP 138/89 07/09/18 10:00 Pulse Ox 97 07/08/18 21:00 Intake & Output 07/08/07/09/18 07/09/18 23:59 11:59 23:59 Intake Total 200 100 480 Output Total 180 100 300 Balance 20 0 180 Intake: IVPB 100 Oral 200 480 Output: Drainage 80 100 Right Buttocks 80 100 Urine 100 300 Void 100 300 Other: Voiding Method Urinal Urinal Bowel Movement Yes: 1 CBC, BMP 07/08/18 06:30 07/08/18 06:30 PE: A&Ox3, NAD Unlabored resp on RA Lumbar spine, incision C/D/I with del in situ and surrounding tissue intact , no tracking erythema, edema, collection or evidence of dc, drain secure at right paravetebral area with @300cc/24hr SS discharge. b/l LE compartments soft, supple and non-tender with sensation to light touch intact throughout, Patient unable to dorsi/plantar flex or actively lift leg off bed at baseline. Problem List - Problems (1) S/P lumbar spinal fusion Assessment/Plan: POD# 5 L3-S1 lami with fusion doing well CLARICE drain output appears to be slowing. 1) Encourage pulmonary toilet. 2) OOB with TLSO brace, WBAT, up to chair for meals, Two person assist needed 3) Continue DVT prophylaxis with SQ heparin, scds and oob 4) Continue ABX while drain in. 5) D/c planning for rehab Evaluation and plan discussed with Dr Denton Code(s): Z98.1 - ARTHRODESIS STATUS
[2018-07-09] MEDS: FOLIC ACID 1 MG TABLET (FP) PO SCH (09:42)
[2018-07-09] MEDS: ACETAMINOPHEN 325 MG TABLET (FP) PO PRN (09:42)
[2018-07-09] MEDS: FERROUS SO4 325 MG TABLET (FP) PO SCH (09:42)
--- NOTE | 2018-07-09 11:23 | DS ---
Physical Examination Vital Signs: Vital Signs Temperature 98.8 F 07/09/18 06:00 Pulse Rate 93 H 07/09/18 06:00 Respiratory Rate 20 07/09/18 06:00 Blood Pressure 114/71 07/09/18 06:00 O2 Sat by Pulse Oximetry (%) 97 07/08/18 21:00 Findings/Remarks: Operative Date: 07/04/18 Pre-Operative Diagnosis: Spinal stenosis, lumbar radiculopathy Operation: Exploration of spinal fusion, removal of hardware, re-op L4-L5, L5- S1 Laminrctomies, L3-L4 transpedicle approach and cage with L3-S1 arthrodesis with pedicle screws Post-Operative Diagnosis: Same as Pre-op Surgeon: Emilio Denton Disease Management Nurse: Tri Dennis Anesthesiologist/DELIVERY LEAD: Tyrone Ibarra Anesthesia: General, Spinal Estimated Blood Loss (mls): 500 Drains & Tubes with Location: CLARICE right paravetebral Constitutional: Yes: Well Nourished, No Distress, Calm Cardiovascular: Yes: Regular Rate and Rhythm Respiratory: Yes: Regular Gastrointestinal: Yes: Normal Bowel Sounds, Soft, Abdomen, Obese Musculoskeletal: Yes: Muscle Weakness Extremities: Yes: WNL Edema: No Peripheral Pulses WNL: Yes Neurological: Yes: Alert, Oriented Psychiatric: Yes: Alert, Oriented Labs: CBC, BMP 07/08/18 06:30 07/08/18 06:30 Discharge Summary Reason For Visit: LUMBAR DGENERATIVE W DISC HERNIATIONS Current Active Problems Constipation (Acute) Leukocytosis (Acute) Lumbar stenosis with neurogenic claudication (Acute) S/P lumbar spinal fusion (Acute) Status post lumbar surgery (Acute) Hospital Course: Laboratory Last Values WBC 12.8 K/mm3 (4.0-10.0) H 07/08/18 06:30 RBC 3.29 M/mm3 (4.00-5.60) L 07/08/18 06:30 Hgb 9.6 GM/dL (11.7-16.9) L 07/08/18 06:30 Hct 30.0 % (35.4-49) L 07/08/18 06:30 MCV 91.1 fl (80-96) 07/08/18 06:30 MCH 29.1 pg (25.7-33.7) 07/08/18 06:30 MCHC 31.9 g/dl (32.0-35.9) L 07/08/18 06:30 RDW 15.0 % (11.9-15.9) 07/08/18 06:30 Plt Count 186 K/MM3 (134-434) 07/08/18 06:30 MPV 10.0 fl (7.5-11.1) 07/08/18 06:30 Absolute Neuts (auto) 8.1 K/mm3 (1.5-8.0) H 07/08/18 06:30 Neutrophils % 63.5 % (42.8-82.8) 07/08/18 06:30 Lymphocytes % 18.3 % (8-40) D 07/08/18 06:30 Monocytes % 14.9 % (3.8-10.2) H 07/08/18 06:30 Eosinophils % 2.6 % (0-4.5) D 07/08/18 06:30 Basophils % 0.7 % (0-2.0) 07/08/18 06:30 Nucleated RBC % 0 % (0-0) 07/08/18 06:30 PT with INR 12.50 SEC (9.7-13.0) 07/07/18 08:30 INR 1.06 (0.83-1.09) 07/07/18 08:30 PTT (Actin FS) 31.5 SECONDS (25.2-36.5) 07/07/18 08:30 Fibrinogen 477.0 mg/dL (238-498) 07/07/18 08:30 Sodium 136 mmol/L (136-145) 07/08/18 06:30 Potassium 4.6 mmol/L (3.5-5.1) 07/08/18 06:30 Chloride 101 mmol/L (98-107) 07/08/18 06:30 Carbon Dioxide 29 mmol/L (21-32) 07/08/18 06:30 Anion Gap 6 MMOL/L (8-16) L 07/08/18 06:30 BUN 15 mg/dL (7-18) 07/08/18 06:30 Creatinine 0.6 mg/dL (0.55-1.3) 07/08/18 06:30 Creat Clearance w eGFR > 60 (>60) 07/08/18 06:30 Random Glucose 106 mg/dL (74-106) 07/08/18 06:30 Calcium 8.7 mg/dL (8.5-10.1) 07/08/18 06:30 Total Bilirubin 0.6 mg/dL (0.2-1) 07/08/18 06:30 AST 25 U/L (15-37) 07/08/18 06:30 ALT 22 U/L (13-61) 07/08/18 06:30 Alkaline Phosphatase 81 U/L (45-117) 07/08/18 06:30 Total Protein 6.0 g/dl (6.4-8.2) L 07/08/18 06:30 Albumin 2.7 g/dl (3.4-5.0) L 07/08/18 06:30 Urine Color Ltyellow 07/05/18 13:30 Urine Appearance Clear 07/05/18 13:30 Urine pH 5.0 (5.0-8.0) 07/05/18 13:30 Ur Specific [place] 1.017 (1.010-1.035) 07/05/18 13:30 Urine Protein Negative (NEGATIVE) 07/05/18 13:30 Urine Glucose (UA) Negative (NEGATIVE) 07/05/18 13:30 Urine Ketones Negative (NEGATIVE) 07/05/18 13:30 Urine Blood Negative (NEGATIVE) 07/05/18 13:30 Urine Nitrite Negative (NEGATIVE) 07/05/18 13:30 Urine Bilirubin Negative (<2.0 mg/dL) 07/05/18 13:30 Urine Urobilinogen Negative mg/dL (0.2-1.0) 07/05/18 13:30 Ur Leukocyte Esterase Negative (NEGATIVE) 07/05/18 13:30 Blood Type AB POSITIVE 07/04/18 10:15 Antibody Screen Negative 07/04/18 09:12 Condition: Stable - Instructions Diet, Activity, Other Instructions: Post Operative Instructions Physical Activity Resume your normal everyday activity as tolerated. No heavy lifting or exercise until seen by your surgeon. You may walk unlimited amounts and climb stairs. You may resume driving the car when you feel safe and comfortable behind the wheel and you are no longer wearing your brace. Do not operate a vehicle while taking narcotic medication. Brace If you had back surgery, wear TLSO Brace whenever out of bed. May remove to sleep and shower. Wound Care Keep your incision clean, dry and covered at all times. Apply an occlusive dressing (Saran wrap or Tegaderm) when showering to avoid getting your incision wet. Do not submerge incision or apply ointments or creams. The del will be removed in the office in 10-14 days post-op. Diet There are no dietary restrictions. Eat healthy, high-fiber foods. Drink 6-8 glasses of liquid each day. This will assist in keeping your bowels regular. Pain Management You may take Tylenol or acetaminophen. Any pain prescription medication ordered should be taken as prescribed for moderate to severe pain. Call Dr Ventura for any of the following: Severe pain not relieved by medication Fever of 101 or higher Excessive bleeding or drainage on dressing Inability to urinate Any chest pain or shortness of breath, seek Emergency Care Immediately. Call the office to confirm a post-operative appointment for 2 weeks Emilio Denton MD [facility] [address] [place] [address]. [place] [address] Disposition: [facility]ACILITY - Home Medications Comprehensive Discharge Medication List: Ambulatory Orders Acetaminophen [Tylenol .Regular Strength -] 650 mg PO Q6H PRN tablet 07/09/18 Docusate Sodium [Colace -] 100 mg PO TID capsule 07/09/18 Ferrous Sulfate [Feosol] 325 mg PO DAILY ud 07/09/18 Folic Acid - 1 mg PO DAILY tablet 07/09/18 Heparin - 5,000 unit SQ TID vial 07/09/18 Methylnaltrexone [place] [Relistor] 12 mg SQ DAILY #30 kit 07/09/18 Sennosides [Senna -] 2 tab PO HS tablet 07/09/18 oxyCODONE HCL [Roxicodone -] 5 mg PO Q4H PRN tablet MDD 6 07/09/18 oxyCODONE HCL [Roxicodone -] 10 mg PO Q4H PRN tablet MDD 6 07/09/18
[2018-07-09 11:54] VITALS: BP 138/89; PULSE 81; TEMP 97.6
--- NOTE | 2018-07-19 14:27 | SURG ---
Surgery Data Center Manager Note Data Center Manager: Tri Dennis PA-C Date of Service: 07/04/18 Diagnosis: Spinal stenosis, lumbar radiculopathy Procedure: 1) Bilateral Laminectomies of L34 2) Bilateral reoperative exposure L45 3) Bilateral Reoperative exposure L5S1 4) L34 Transpedicular approach 5) fluroscopy 6) Exploration of spinal fusion 7) Interbody Cage L34 8) Interbody & posterior/lateral arthrodesis L34 9) Posterior/lateral arthrodesis L45 10) Posterior/lateral Arthodesis L5S1 11) L3-S1 Posterior Segmental Instrumentation 12) Local autograft 13) L4 Osteotomy 14) L5 Osteotomy 15) S1 Osteotomy 16) Removal posterior segmental instrumentation 17) Bilateral soft tissue advancement flaps ( 50cm2) I was present for the entirety of the operative procedure. For further detail, please refer to operative report. Visit type - Case Type Case Type: Scheduled - Emergency Emergency Visit: No - New patient This patient is new to me today: Yes Date on this admission: 07/19/18
== END 2018-07-09 19:10 | DRG 460 ==
LOC: JSAMEDAYSX 07-04 08:52 → J8W 07-04 18:10
PROVIDERS: ADMIT Family Medicine; ATTEND Family Medicine
PROC: 0SG10AJ Fusion of 2 or more Lumbar Vertebral Joints with Interbody Fusion Device, Posterior Approach, Anterior Column, Open Approach (ICD-10-PCS; 2018-07-04)
PROC: 0SP304Z Removal of Internal Fixation Device from Lumbosacral Joint, Open Approach (ICD-10-PCS; 2018-07-04)
PROC: 0SG30AJ Fusion of Lumbosacral Joint with Interbody Fusion Device, Posterior Approach, Anterior Column, Open Approach (ICD-10-PCS; 2018-07-04)
PROC: 0ST20ZZ Resection of Lumbar Vertebral Disc, Open Approach (ICD-10-PCS; 2018-07-04)
PROC: 0ST40ZZ Resection of Lumbosacral Disc, Open Approach (ICD-10-PCS; 2018-07-04)
PROC: 00NY0ZZ Release Lumbar Spinal Cord, Open Approach (ICD-10-PCS; 2018-07-04)
PROC: 0SJ00ZZ Inspection of Lumbar Vertebral Joint, Open Approach (ICD-10-PCS; 2018-07-04)
PROC: 0SJ30ZZ Inspection of Lumbosacral Joint, Open Approach (ICD-10-PCS; 2018-07-04)
PROC: 0JX70ZZ Transfer Back Subcutaneous Tissue and Fascia, Open Approach (ICD-10-PCS; 2018-07-04)
PROC: B01BZZZ Fluoroscopy of Spinal Cord (ICD-10-PCS; 2018-07-04)
PROC: 0SP004Z Removal of Internal Fixation Device from Lumbar Vertebral Joint, Open Approach (ICD-10-PCS; principal; 2018-07-04 08:30)
DX: M51.06 Intervertebral disc disorders with myelopathy, lumbar region (principal); M96.0 Pseudarthrosis after fusion or arthrodesis; I69.351 Hemiplegia and hemiparesis following cerebral infarction affecting right dominant side; M51.26 Other intervertebral disc displacement, lumbar region; M48.062 Spinal stenosis, lumbar region with neurogenic claudication; M53.2X6 Spinal instabilities, lumbar region; M54.16 Radiculopathy, lumbar region; D72.829 Elevated white blood cell count, unspecified; D64.9 Anemia, unspecified; K59.00 Constipation, unspecified; M40.299 Other kyphosis, site unspecified; Y83.8 Other surgical procedures as the cause of abnormal reaction of the patient, or of later complication, without mention of misadventure at the time of the procedure; Z98.890 Other specified postprocedural states; Z87.891 Personal history of nicotine dependence
CPT/HCPCS: 36415; 71045-TC-FY; 72131-TC; 76000-TC-FY; 80048; 80053; 81003; 85025; 85027; 85384; 85610; 85730; 86850; 86900; 86901; 94010; 94760; 97162-GP; J0131; J1644; J7030

== ENCOUNTER 2018-12-31 12:00 | Inpatient (IN) | payer OTHER ==
[2019-01-02 13:14] VITALS: BMI 29.9
[2019-01-21] MEDS ORDERED: THROMBIN (BOVINE) 5,000 UNIT VIAL TP ONE ×2 (10:04→13:35)
[2019-01-21] MEDS ORDERED: BACITRACIN 15 GM TUBE TOPICAL OINTMENT ONE (10:04)
[2019-01-21] MEDS ORDERED: THROMBIN (BOVINE) 20,000 UNIT VIAL TP ONE (10:04)
--- NOTE | 2019-01-21 11:32 | HP ---
History & Physical Update - History History: No Change - Physical Physical: No Change - Assessment Assessment: No Change - Plan Plan: No Change (Full H&P in paper chart from 01/02/19)
[2019-01-21] MEDS ORDERED: BUPIVACAINE LIPOSOME/PF (EXPAREL) 266 MG/20 ML VIAL ONE (11:43)
[2019-01-21] MEDS ORDERED: BUPIVACAINE HCL/PF 0.5% (5MG/ML) 10 ML VIAL ONE (11:43)
[2019-01-21] MEDS ORDERED: MIDAZOLAM HCL 2 MG/2 ML SINGLE DOSE VIAL ONE (11:59)
[2019-01-21] MEDS ORDERED: VANCOMYCIN 1,000 MG VIAL (RESTRICTED TO ID ONLY) IVPB ONE (12:00)
[2019-01-21] MEDS ORDERED: ceFAZolin SODIUM 1 GM VIAL IVPB ONE (13:00)
[2019-01-21] MEDS ORDERED: GENTAMICIN 80MG PREMIX BAG IVPB ONE (13:22)
[2019-01-21] MEDS ORDERED: HYDROGEN PEROXIDE 473 ML PO ONE (13:22)
[2019-01-21] MEDS ORDERED: BACITRACIN 50,000 UNITS VIAL NR ONE (13:23)
[2019-01-21] MEDS ORDERED: GELATIN SPONGE,ABSORBABLE 1 GM PACKET TP ONE (13:34)
[2019-01-21] MEDS ORDERED: ROCURONIUM BROMIDE 50 MG/5 ML SYRINGE ONE (13:52)
[2019-01-21] MEDS ORDERED: NEOSTIGMINE METHYLSULFATE 0.5 MG/1 ML - 10 ML MDV ONE (15:34)
[2019-01-21] MEDS ORDERED: ONDANSETRON 4 MG/2 ML VIAL IVPUSH PRN ×2 (15:34→15:44)
[2019-01-21] MEDS ORDERED: oxyCODONE HCL 5 MG TABLET PO PRN (15:38)
[2019-01-21] MEDS ORDERED: diphenhydrAMINE HCL 25 MG CAPSULE (FP) PO PRN (15:44)
[2019-01-21] MEDS ORDERED: LACTATED RINGERS SOLUTION 1,000 ML IV SCH (15:45)
[2019-01-21] MEDS ORDERED: HEPARIN NA (PORCINE) 5,000 UNITS/ML 1ML VIAL SQ SCH (15:45)
--- NOTE | 2019-01-21 16:15 | OP ---
Operative Note - Note: Operative Date: 01/21/19 Pre-Operative Diagnosis: Cervical spondylosis and kyphosis Operation: C2-C7 laminectomies and posterior fusion Post-Operative Diagnosis: Same as Pre-op Surgeon: Emilio Denton Project Drilling Engineer: Kris Conti Anesthesiologist/CAR PICK UP DRIVER: Anjum Bateman Anesthesia: General Operative Report Dictated: Yes
[2019-01-21] MEDS ORDERED: ACETAMINOPHEN INJECTION 100 ML IVPB ONE (16:20)
[2019-01-21] MEDS: LACTATED RINGERS SOLUTION 1,000 ML/1,000 ML INFUS.BAG IV SCH (17:40)
[2019-01-21] MEDS ORDERED: CEFAZOLIN 1 GM/D5W 1 GM/50 ML BAG IVPB SCH (18:00)
[2019-01-21] MEDS: morphine SULFATE 4 MG/ML VIAL IVPUSH PRN (18:42)
[2019-01-21] MEDS ORDERED: ceFAZolin SODIUM 1 GM VIAL ONE (20:35)
[2019-01-21] MEDS ORDERED: DEXTROSE 5%-WATER - 50 ML IVPB ONE (20:36)
[2019-01-21] MEDS: CEFAZOLIN 1 GM in DEXTROSE 5%-WATER - 50 ML IVPB SCH (20:38)
[2019-01-21] MEDS ORDERED: PT OWN MED DRAWER 7, Y5N ONE (21:18)
[2019-01-21] MEDS: DOCUSATE SODIUM 100 MG CAPSULE (FP) PO SCH (22:01)
[2019-01-21] MEDS: ACETAMINOPHEN 1000 MG/100 ML VIAL (NON FORMULARY) IVPB SCH (22:01)
[2019-01-22] MEDS: ACETAMINOPHEN 1000 MG/100 ML VIAL (NON FORMULARY) IVPB SCH ×3 (02:58→10:11)
[2019-01-22] MEDS: LACTATED RINGERS SOLUTION 1,000 ML/1,000 ML INFUS.BAG IV SCH ×2 (04:05→22:05)
[2019-01-22] MEDS: CEFAZOLIN 1 GM in DEXTROSE 5%-WATER - 50 ML IVPB SCH ×3 (04:12→17:56)
[2019-01-22] MEDS: DOCUSATE SODIUM 100 MG CAPSULE (FP) PO SCH ×3 (05:39→22:05)
[2019-01-22] MEDS: HEPARIN NA (PORCINE) 5,000 UNITS/ML 1ML VIAL SQ SCH ×3 (05:43→22:05)
[2019-01-22 07:51] LABS: HEMATOCRIT 40.6 % (35.4-49); HEMOGLOBIN 13.3 GM/dL (11.7-16.9); MCH 29.6 pg (25.7-33.7); MCHC 32.9 g/dl (32.0-35.9); MEAN CELL VOLUME 89.9 fl (80-96); MEAN PLT VOLUME 10.6 fl (7.5-11.1); PLATELET COUNT 198 K/MM3 (134-434); RBC 4.51 M/mm3 (4.00-5.60); RDW 16.8 % (11.9-15.9); WHITE BLOOD COUNT 13.2 K/mm3 (4.0-10.0)
--- NOTE | 2019-01-22 08:25 | SPA.POSTOP ---
- POST-OP NOTE POD #1 s/p C2-C7 laminectomies and posterior fusion No acute events since surgical procedure per RN notes. Patient resting comfortably. Pain management via prn meds. Wearing his cervical collar as instructed. Denies n/v/f/c, CP or SOB. Last Vital Signs Temp Pulse Resp BP Pulse Ox 98.4 F 76 20 132/92 95 01/22/19 07:01 01/22/19 07:01 01/22/19 07:01 01/22/19 07:01 01/21/19 21:00 OUTPUT 01/21/19 01/21/19 01/22/19 19:00 22:57 06:00 Posterior Cervical CLARICE 60 60 80 [place] 50 100 800 Physical Exam General: NAD Pulm: CTA bilat Cor: RRR Neck: [place] collar in place. Surgical dressing c/d/i. CLARICE on bulb suction ( serosang) : [place] to gravity LE: Soft, non-tender bilat. SCD's bilat. Problem List - Problems (1) S/P cervical spinal fusion Assessment/Plan: POD #1 s/p C2-C7 laminectomies with posterior fusion Case management for REHAB placement (patient requesting [facility]) Wear your surgical collar 23 hr/day. May remove while bathing while eating meals Wheelchair bound secondary to LE weakness Pain management IV ABX to cont while drain remains in (most likely will dc CLARICE in AM) DC comer once patient able to get OOB to chair/wheelchair with assist Regular diet Incentive Spirometer PT Monitor CLARICE output and record Q shift Code(s): Z98.1 - ARTHRODESIS STATUS (2) Lower extremity weakness Code(s): M62.81 - MUSCLE WEAKNESS (GENERALIZED) Qualifiers: Laterality: bilateral Qualified Code(s): R29.898 - Other symptoms and signs involving the musculoskeletal system (3) Polyneuropathy Code(s): G62.9 - POLYNEUROPATHY, UNSPECIFIED Visit type - Case Type Case Type: Scheduled - New patient This patient is new to me today: Yes Date on this admission: 01/22/19
[2019-01-22 08:47] LABS: BLOOD UREA NITROGEN 13.6 mg/dL (7-18); CALCIUM 9.2 mg/dL (8.5-10.1); CREATININE 0.6 mg/dL (0.55-1.3)
[2019-01-22] MEDS: FERROUS SO4 325 MG TABLET (FP) PO SCH ×2 (09:54→10:10)
[2019-01-22] MEDS ORDERED: ceFAZolin SODIUM 1 GM VIAL ONE ×2 (09:56→16:43)
[2019-01-22] MEDS ORDERED: DEXTROSE 5%-WATER - 50 ML IVPB ONE ×2 (09:56→16:44)
[2019-01-22] MEDS: FOLIC ACID 1 MG TABLET (FP) PO SCH (10:09)
[2019-01-22] MEDS: oxyCODONE HCL 5 MG TABLET PO PRN ×2 (15:27→21:00)
[2019-01-23] MEDS: oxyCODONE HCL 5 MG TABLET PO PRN ×3 (01:06→20:29)
[2019-01-23] MEDS: morphine SULFATE 4 MG/ML VIAL IVPUSH PRN ×4 (05:20→18:44)
[2019-01-23] MEDS: DOCUSATE SODIUM 100 MG CAPSULE (FP) PO SCH ×3 (05:31→14:47)
[2019-01-23] MEDS: HEPARIN NA (PORCINE) 5,000 UNITS/ML 1ML VIAL SQ SCH ×2 (05:31→14:44)
--- NOTE | 2019-01-23 07:57 | SPA.POSTOP ---
- POST-OP NOTE POD #2 POD #1 s/p C2-C7 laminectomies and posterior fusion No acute events since surgical procedure per RN notes. Patient resting comfortably. Pain management via prn meds. Wearing his cervical collar as instructed. PT attempted to get patient OOB but he refused secondary to pain with movement. Still has his comer cath in as he refused to let anyone remove it. Denies n/v/f/c, CP or SOB. Last Vital Signs Temp Pulse Resp BP Pulse Ox 99 F 88 20 143/94 97 01/23/19 06:00 01/23/19 06:00 01/23/19 06:00 01/23/19 06:00 01/22/19 21:00 24 Hour Drain Output 01/22/19 01/22/19 01/22/19 01/23/19 01/23/19 06:00 15:00 20:01 Posterior Cervical CLARICE 80 80 50 60 60 Physical Exam General: No acute distress. Neck: Surgical dressing c/d/i. No signs of infection. CLARICE (serosang) LE: Soft. SCDs bilat Problem List - Problems (1) S/P cervical spinal fusion Assessment/Plan: POD #2 s/p C2-C7 laminectomies with posterior fusion Case management for REHAB placement (patient requesting [facility]) Wear your surgical collar 23 hr/day. May remove while bathing while eating meals Wheelchair bound secondary to LE weakness Pain management IV ABX to cont while drains remains in DC comer once patient able to get OOB to chair/wheelchair with assist Regular diet Incentive Spirometer PT Monitor CLARICE output and record Q shift f/u CBC & BMP Code(s): Z98.1 - ARTHRODESIS STATUS (2) Lower extremity weakness Code(s): M62.81 - MUSCLE WEAKNESS (GENERALIZED) Qualifiers: Laterality: bilateral Qualified Code(s): R29.898 - Other symptoms and signs involving the musculoskeletal system (3) Polyneuropathy Code(s): G62.9 - POLYNEUROPATHY, UNSPECIFIED Code(s): Z98.1 - ARTHRODESIS STATUS (2) Lower extremity weakness Code(s): M62.81 - MUSCLE WEAKNESS (GENERALIZED) Qualifiers: Laterality: bilateral Qualified Code(s): R29.898 - Other symptoms and signs involving the musculoskeletal system (3) Polyneuropathy Code(s): G62.9 - POLYNEUROPATHY, UNSPECIFIED
[2019-01-23] MEDS: FOLIC ACID 1 MG TABLET (FP) PO SCH (10:41)
[2019-01-23] MEDS: FERROUS SO4 325 MG TABLET (FP) PO SCH ×2 (10:41→10:43)
--- NOTE | 2019-01-23 14:43 | PN ---
Progress Note, Physician Chief Complaint: Cervical Spondylosis C2-C7 Laminectomy History of Present Illness: Previous notes and events reviewed awake and alert NAD complain of pain to neck c-collar in place PT at bedside - Current Medication List Current Medications: Active Medications Diphenhydramine HCl (Benadryl -) 25 mg PO Q6H PRN PRN Reason: FOR ITCHING Docusate Sodium (Colace -) 100 mg PO TID [facility] Last Admin: 01/23/19 05:31 Dose: Not Given Ferrous Sulfate (Feosol -) 325 mg PO DAILY@0800 [facility] Last Admin: 01/23/19 10:43 Dose: Not Given Folic Acid (Folic Acid -) 1 mg PO DAILY [facility] Last Admin: 01/23/19 10:41 Dose: 1 mg Heparin Sodium (Porcine) (Heparin -) 5,000 unit SQ TID [facility] Last Admin: 01/23/19 05:31 Dose: Not Given Lactated Ringer's (Lactated Ringers Solution) 1,000 ml in 1,000 mls @ 125 mls/ hr IV ASDIR [facility] Last Admin: 01/22/19 22:05 Dose: Not Given Morphine Sulfate (Morphine Sulfate) 4 mg IVPUSH Q4H PRN PRN Reason: PAIN LEVEL 7 - 10 Last Admin: 01/23/19 10:50 Dose: 4 mg Ondansetron HCl (Zofran Injection) 4 mg IVPUSH Q6H PRN PRN Reason: NAUSEA AND/OR VOMITING Oxycodone HCl (Roxicodone -) 5 mg PO Q4H PRN PRN Reason: PAIN LEVEL 1-5 Oxycodone HCl (Roxicodone -) 10 mg PO Q4H PRN PRN Reason: PAIN LEVEL 6-10 Last Admin: 01/23/19 08:40 Dose: 10 mg - Objective Vital Signs: Vital Signs Temperature 99 F 01/23/19 06:00 Pulse Rate 88 01/23/19 06:00 Respiratory Rate 20 01/23/19 06:00 Blood Pressure 143/94 01/23/19 06:00 O2 Sat by Pulse Oximetry (%) 97 01/22/19 21:00 Constitutional: Yes: No Distress, Calm Eyes: Yes: Conjunctiva Clear HENT: Yes: Atraumatic Neck: Yes: Other (c-collar) Cardiovascular: Yes: Regular Rate and Rhythm Respiratory: Yes: Regular, CTA Bilaterally Gastrointestinal: Yes: Normal Bowel Sounds, Soft, Abdomen, Obese Musculoskeletal: Yes: Muscle Weakness Extremities: Yes: WNL Edema: No Wound/Incision: Yes: Dressing Dry and Intact Neurological: Yes: Alert, Oriented Psychiatric: Yes: Alert, Oriented Labs: CBC, BMP 01/22/19 06:15 01/22/19 06:15 Problem List - Problems (1) S/P cervical spinal fusion Assessment/Plan: -Neurosurgery on board -C-collar in place -POD #2 C2-C7 Laminectomy and posterior fusion -incentive spirometer -pain control -stool softener Code(s): Z98.1 - ARTHRODESIS STATUS (2) Lower extremity weakness Assessment/Plan: -PT -pending discharge to SNF Code(s): M62.81 - MUSCLE WEAKNESS (GENERALIZED) Qualifiers: Laterality: bilateral Qualified Code(s): R29.898 - Other symptoms and signs involving the musculoskeletal system Assessment/Plan see problem list dvt ppx
[2019-01-23] MEDS: LACTATED RINGERS SOLUTION 1,000 ML/1,000 ML INFUS.BAG IV SCH (20:29)
[2019-01-24] MEDS: morphine SULFATE 4 MG/ML VIAL IVPUSH PRN ×2 (00:12→08:58)
[2019-01-24] MEDS: HEPARIN NA (PORCINE) 5,000 UNITS/ML 1ML VIAL SQ SCH ×3 (03:39→15:42)
[2019-01-24] MEDS: DOCUSATE SODIUM 100 MG CAPSULE (FP) PO SCH ×3 (03:39→15:37)
[2019-01-24] MEDS: oxyCODONE HCL 5 MG TABLET PO PRN ×2 (05:36→12:40)
[2019-01-24] MEDS: FERROUS SO4 325 MG TABLET (FP) PO SCH (09:02)
[2019-01-24] MEDS: FOLIC ACID 1 MG TABLET (FP) PO SCH (09:02)
--- NOTE | 2019-01-24 09:17 | PN ---
Progress Note (short form) - Note Progress Note: POD 3, s/p C2-C7 laminectomies and posterior fusion Pt seen and examined. Endorses some pain, controlled with pain meds. Has not been oob (pt wheelchair bound x 2 years). Tolerating PO. Denies cp/sob, n/v/d, decreased motor/sensory. Urinating without issue. Vital Signs Temp 99.8 F H 01/24/19 07:08 Pulse 76 01/24/19 07:08 Resp 20 01/24/19 07:08 BP 119/76 01/24/19 07:08 Pulse Ox 97 01/23/19 21:00 Intake & Output 01/23/19 01/23/19 01/24/19 11:59 23:59 11:59 Intake Total 1475 1875 500 Output Total 120 1960 200 Balance 1355 -85 300 Weight 235 lb 11.2 oz 232 lb 8 oz Intake: IV 875 875 LACTATED RINGERS SOLUTION 875 875 1,000 ml In 1,000 ml @ 125 mls/hr IV ASDIR DANIELLA Rx#:[id number] IVPB 100 100 Oral 500 900 500 Output: Drainage 120 60 Right Posterior Neck 120 60 Urine 1900 200 Torres 700 Void 1200 200 Other: Voiding Method Urinal Urinal # Unmeasured Voids Void 2 1 Bowel Movement No Weight Measurement Method Built in Bedscale Built in Bedscale CBC, BMP 01/22/19 06:15 01/22/19 06:15 Physical Exam General: No acute distress. Neck: Surgical dressing c/d/i. Cervical collar in place Neuro: b/l ue starch cooker strength 5/5, biceps/triceps 5/5 b/l. SILT b/l UE. B/L Le's flaccid, unable to wiggle toes, no dorsi/plantar flexion (baseline per pt), SILT b/l le's A/P: 73 y/o M w/ h/o multiple falls s/p Exploration of spinal fusion, removal of hardware, re-op L4-L5, L5-S1 Laminectomies, L3-L4 transpedicle approach and cage with L3-S1 arthrodesis with pedicle screws (06/[address] Villar), now POD 3, s/p C2-C7 laminectomies and posterior fusion. Neuro exam stable Urinating in urinal without issue Plan for d/c to facility later today, cleared by NS standpoint Call with any questions/concerns d/w Dr Villar
[2019-01-24 15:49] VITALS: BP 114/65; PULSE 100; TEMP 99.9
--- NOTE | 2019-01-24 15:57 | DS ---
Physical Examination Vital Signs: Vital Signs Temperature 99.9 F H 01/24/19 14:00 Pulse Rate 100 H 01/24/19 14:00 Respiratory Rate 20 01/24/19 14:00 Blood Pressure 114/65 01/24/19 14:00 O2 Sat by Pulse Oximetry (%) 97 01/24/19 09:00 Findings/Remarks: Patient is a 73 y/o male admitted after C2-C7 laminectomy. Constitutional: Yes: No Distress, Calm Eyes: Yes: Conjunctiva Clear HENT: Yes: Atraumatic Neck: Yes: Other (c-collar) Respiratory: Yes: Regular, CTA Bilaterally Gastrointestinal: Yes: Normal Bowel Sounds, Soft Musculoskeletal: Yes: Muscle Weakness Extremities: Yes: WNL Edema: No Neurological: Yes: Alert Psychiatric: Yes: Alert Labs: CBC, BMP 01/22/19 06:15 01/22/19 06:15 Discharge Summary Reason For Visit: CERVICAL SPONDYLOSIS AND KYPHOSIS Current Active Problems Polyneuropathy (Acute) S/P cervical spinal fusion (Acute) Procedures: Principal: C2-C7 laminectomy Hospital Course: see progress notes Laboratory Tests 01/21/19 01/22/19 01/22/19 10:14 06:15 06:15 WBC 13.2 H RBC 4.51 Hgb 13.3 Hct 40.6 D MCV 89.9 MCH 29.6 MCHC 32.9 RDW 16.8 H Plt Count 198 MPV 10.6 Sodium 139 Potassium 5.0 Chloride 106 Carbon Dioxide 26 Anion Gap 7 L BUN 13.6 Creatinine 0.6 Est GFR (CKD-EPI)AfAm 113.99 Est GFR (CKD-EPI)NonAf 98.35 Random Glucose 90 Calcium 9.2 Blood Type AB POSITIVE Antibody Screen Negative Active Medications Generic Name Dose Route Start Last Admin Trade Name Freq PRN Reason Stop Dose Admin Diphenhydramine HCl 25 mg 01/21/19 15:44 Benadryl - PO Q6H PRN FOR ITCHING Docusate Sodium 100 mg 01/21/19 22:00 01/24/19 15:37 Colace - PO Not Given TID DANIELLA Ferrous Sulfate 325 mg 01/22/19 08:00 01/24/19 09:02 Feosol - PO Not Given DAILY@0800 [facility] Folic Acid 1 mg 01/22/19 10:00 01/24/19 09:02 Folic Acid - PO Not Given DAILY [facility] Heparin Sodium (Porcine) 5,000 unit 01/22/19 06:00 01/24/19 15:42 Heparin - SQ 5,000 unit TID DANIELLA Administration Lactated Ringer's 1,000 ml in 1,000 mls @ 125 mls/hr 01/21/19 15:45 01/23/19 20:29 Lactated Ringers Solution IV Not Given ASDIR DANIELLA Ondansetron HCl 4 mg 01/21/19 15:34 Zofran Injection IVPUSH Q6H PRN NAUSEA AND/OR VOMITING Condition: Stable - Instructions Diet, Activity, Other Instructions: Post Operative Instructions Physical Activity Resume your normal everyday activity as tolerated. No heavy lifting or exercise until seen by your surgeon. You may walk unlimited amounts and climb stairs. You may resume driving the car when you feel safe and comfortable behind the wheel and you are no longer wearing your brace. Do not operate a vehicle while taking narcotic medication. Brace If you had back surgery, wear TLSO Brace whenever out of bed. May remove to sleep and shower. If you had neck surgery, wear surgical collar 23 hr/day. Remove to shower only. Wound Care Keep your incision clean, dry and covered at all times. Apply an occlusive dressing (Saran wrap or Tegaderm) when showering to avoid getting your incision wet. Do not submerge incision or apply ointments or creams. The del will be removed in the office in 10-14 days post-op. Diet There are no dietary restrictions. Eat healthy, high-fiber foods. Drink 6-8 glasses of liquid each day. This will assist in keeping your bowels regular. Pain Management You may take Tylenol or acetaminophen. Any pain prescription medication ordered should be taken as prescribed for moderate to severe pain. Avoid any ibuprofen (Motrin, Advil, Aleve, Toradol, etc) for 3 months unless otherwise discussed with your surgeon. Call Dr Ventura for any of the following: Severe pain not relieved by medication Fever of 101 or higher Excessive bleeding or drainage on dressing Inability to urinate Any chest pain or shortness of breath, seek Emergency Care. Call the office to confirm a post-operative appointment for 2-3 weeks post-op Emilio Denton MD [facility] [place] [address] continue with medication as prescribed follow up with Dr Denton 2 weeks post op return to ER if develop fever, chest pain, respiratory distress, AMS Referrals: Emilio Denton MD, FAANS [Staff Physician] - Disposition: SNF FACILITY - Home Medications Comprehensive Discharge Medication List: Ambulatory Orders Acetaminophen [Tylenol .Regular Strength -] 650 mg PO Q6H PRN tablet 07/09/18 Ibuprofen [Motrin -] 800 mg PO QID 01/02/19 Docusate Sodium [Colace -] 100 mg PO TID capsule 01/24/19 Ferrous Sulfate [Feosol] 325 mg PO DAILY@0800 ud 01/24/19 Folic Acid - 1 mg PO DAILY tablet 01/24/19 oxyCODONE HCL [Roxicodone -] 10 mg PO Q4H PRN tablet MDD 6 01/24/19
== END 2019-01-24 18:12 | DRG 454 ==
LOC: JSAMEDAYSX 01-21 09:57 → J8W 01-21 18:26
PROVIDERS: ADMIT Family Medicine; ATTEND Family Medicine
PROC: 0RG2071 Fusion of 2 or more Cervical Vertebral Joints with Autologous Tissue Substitute, Posterior Approach, Posterior Column, Open Approach (ICD-10-PCS; 2019-01-21)
PROC: 0PB30ZZ Excision of Cervical Vertebra, Open Approach (ICD-10-PCS; 2019-01-21)
PROC: 0JX70ZZ Transfer Back Subcutaneous Tissue and Fascia, Open Approach (ICD-10-PCS; 2019-01-21)
PROC: B01BZZZ Fluoroscopy of Spinal Cord (ICD-10-PCS; 2019-01-21)
PROC: 0RG20AJ Fusion of 2 or more Cervical Vertebral Joints with Interbody Fusion Device, Posterior Approach, Anterior Column, Open Approach (ICD-10-PCS; principal; 2019-01-21 11:00)
DX: M47.12 Other spondylosis with myelopathy, cervical region (principal); M50.01 Cervical disc disorder with myelopathy, high cervical region; M40.292 Other kyphosis, cervical region; E66.8 Other obesity; Z68.32 Body mass index [BMI] 32.0-32.9, adult; R29.898 Other symptoms and signs involving the musculoskeletal system; R26.9 Unspecified abnormalities of gait and mobility; R29.6 Repeated falls; Z99.3 Dependence on wheelchair; G62.9 Polyneuropathy, unspecified; M40.40 Postural lordosis, site unspecified
CPT/HCPCS: 36415; 72125-TC; 76000-TC-FY; 80048; 85027; 86850; 86900; 86901; 94760; 97162-GP; J0131; J1644

== ENCOUNTER 2020-08-12 04:23 | Day surgery (SDC) | payer OTHER ==
[2020-08-10 10:46] VITALS: BMI 32.1
[2020-08-12] MEDS ORDERED: CIPROFLOXACIN HCL 0.3% OPHTH 2.5ML BOTTLE ONE (06:37)
[2020-08-12] MEDS ORDERED: TROPICAMIDE 1% OPHTH SOLN 15 ML BOTTLE ONE (06:38)
[2020-08-12] MEDS ORDERED: KETOROLAC TROMETHAMINE 0.5% EYE DROP 1 DROP DROPS ONE (06:38)
[2020-08-12] MEDS ORDERED: TROPICAMIDE 1% OPHTH SOLN 15 ML BOTTLE OD ONE ×3 (06:45→07:00)
[2020-08-12] MEDS ORDERED: PHENYLEPHRINE 2.5% OPHTH SOLN 15 ML BOTTLE OD ONE ×3 (06:45→07:00)
[2020-08-12] MEDS ORDERED: CIPROFLOXACIN HCL 0.3% OPHTH 2.5ML BOTTLE OD ONE ×3 (06:45→07:00)
[2020-08-12] MEDS ORDERED: KETOROLAC TROMETHAMINE 0.5% EYE DROP 1 DROP DROPS OD ONE ×3 (06:45→07:00)
[2020-08-12] MEDS ORDERED: TOBRAMYCIN/DEXAMETHASONE OPHTH. OINTMENT 1 TUBE ONE (07:09)
[2020-08-12] MEDS ORDERED: LIDOCAINE HCL/PF 1% SDV 5ML VIAL ONE (07:09)
[2020-08-12] MEDS ORDERED: EPINEPHrine/PF 1 MG/1 ML (1:1,000) AMPULE ONE (07:10)
[2020-08-12] MEDS ORDERED: CHONDROITIN SU A/HYALUR SOD 1 KIT ONE (07:10)
[2020-08-12] MEDS ORDERED: TETRACAINE 0.5% OPHTH SOLN 2 ML BOTTLE ONE (07:10)
[2020-08-12] MEDS ORDERED: BSS (NA/CA/MG/K) BALANCED SALT SOLUTION OPHTH SOLN 15 ML BOTTLE ONE (07:10)
[2020-08-12] MEDS ORDERED: POVIDONE-IODINE 5% OPHTHALMIC PREP 30 ML SOLUTION ONE (07:10)
[2020-08-12] MEDS ORDERED: SUCCINYLCHOLINE CHLORIDE 200 MG/10 ML SYRINGE ONE (07:13)
[2020-08-12] MEDS ORDERED: MIDAZOLAM HCL 2 MG/2 ML SINGLE DOSE VIAL ONE (07:13)
[2020-08-12] MEDS ORDERED: ACETAMINOPHEN 325 MG TABLET (FP) PO PRN (07:14)
[2020-08-12] MEDS ORDERED: CIPROFLOXACIN HCL 0.3% OPHTH 2.5ML BOTTLE OP SCH (07:15)
[2020-08-12] MEDS ORDERED: PHENYLEPHRINE 2.5% OPHTH SOLN 15 ML BOTTLE OP SCH (07:15)
[2020-08-12] MEDS ORDERED: KETOROLAC TROMETHAMINE 0.5% EYE DROP 1 DROP DROPS OP SCH (07:15)
[2020-08-12] MEDS ORDERED: TROPICAMIDE 1% OPHTH SOLN 15 ML BOTTLE OP SCH (07:15)
[2020-08-12] MEDS ORDERED: PROPOFOL 20 ML ONE (07:30)
[2020-08-12] MEDS ORDERED: LIDOCAINE HCL/PF 2% SDV 5ML VIAL INF ONE (07:39)
[2020-08-12] MEDS ORDERED: BUPIVACAINE HCL/PF 0.75% 10 ML VIAL RB ONE (07:39)
[2020-08-12] MEDS ORDERED: POVIDONE-IODINE 5% OPHTHALMIC PREP 30 ML SOLUTION OD ONE (07:42)
[2020-08-12] MEDS ORDERED: BSS (NA/CA/MG/K) BALANCED SALT SOLUTION OPHTH SOLN 15 ML BOTTLE OD ONE (07:45)
[2020-08-12] MEDS ORDERED: TRYPAN BLUE 0.5 ML DISP.SYRIN IO ONE (07:48)
[2020-08-12] MEDS ORDERED: CHONDROITIN SU A/HYALUR SOD 1 KIT IO ONE (07:48)
[2020-08-12] MEDS ORDERED: EPINEPHrine/PF 1 MG/1 ML (1:1,000) AMPULE SQ ONE (08:03)
[2020-08-12] MEDS ORDERED: TOBRAMYCIN/DEXAMETHASONE OPHTH. OINTMENT 1 TUBE TP ONE (08:30)
[2020-08-12 08:57] VITALS: TEMP 97.9
[2020-08-12 09:44] VITALS: BP 110/79; PULSE 99
== END 2020-08-12 09:30 | disposition home or self-care (01) ==
LOC: JASU-SURG 04:23
PROVIDERS: ATTEND Ophthalmology
PROC: 08RK3JZ Replacement of Left Lens with Synthetic Substitute, Percutaneous Approach (ICD-10-PCS; principal; 2020-08-12 07:30)
DX: H25.091 Other age-related incipient cataract, right eye (principal); H57.03 Miosis

== ENCOUNTER 2021-01-06 04:18 | Day surgery (SDC) | payer OTHER ==
[2021-01-04 17:17] VITALS: BMI 31.8
[~2021-01-06 04:18] MED LIST: BSS (NA/CA/MG/K) BALANCED SALT SOLUTION OPHTH SOLN 15 ML BOTTLE OS ONE; CHONDROITIN SU A/HYALUR SOD 1 KIT IO ONE; LIDOCAINE HCL 1% PRESERVATIVE FREE - 30ML VIAL IO ONE; PHENYLEPHRINE/KETOROLAC 4 ML VIAL IO ONE; POVIDONE-IODINE 5% OPHTHALMIC PREP 30 ML SOLUTION OS ONE; TETRACAINE 0.5% OPHTH SOLN 2 ML BOTTLE TP ONE; TOBRAMYCIN/DEXAMETHASONE OPHTH. OINTMENT 1 TUBE TP ONE
[2021-01-06] MEDS: CIPROFLOXACIN HCL 0.3% OPHTH 2.5ML BOTTLE OS SCH ×2 (06:30→06:35)
[2021-01-06] MEDS: TROPICAMIDE 1% OPHTH SOLN 15 ML BOTTLE OS SCH ×2 (06:30→06:35)
[2021-01-06] MEDS: PHENYLEPHRINE 2.5% OPHTH SOLN 15 ML BOTTLE OS SCH ×2 (06:30→06:35)
[2021-01-06] MEDS: DICLOFENAC SODIUM 0.1% OPHTHALMIC 2.5ML BOTTLE OS SCH ×2 (06:30→06:35)
[2021-01-06] MEDS ORDERED: DICLOFENAC SODIUM 0.1% OPHTHALMIC 2.5ML BOTTLE ONE (06:36)
[2021-01-06] MEDS ORDERED: CIPROFLOXACIN 0.3% EYE DROPS 5 ML BOTTLE ONE (06:36)
[2021-01-06] MEDS ORDERED: TROPICAMIDE 1% OPHTH SOLN 15 ML BOTTLE ONE (06:36)
[2021-01-06] MEDS ORDERED: TETRACAINE 0.5% OPHTH SOLN 2 ML BOTTLE TP ONE (07:56)
[2021-01-06] MEDS ORDERED: POVIDONE-IODINE 5% OPHTHALMIC PREP 30 ML SOLUTION OS ONE (08:00)
[2021-01-06] MEDS ORDERED: BSS (NA/CA/MG/K) BALANCED SALT SOLUTION OPHTH SOLN 15 ML BOTTLE OS ONE (08:04)
[2021-01-06] MEDS ORDERED: LIDOCAINE HCL 1% PRESERVATIVE FREE - 30ML VIAL IO ONE (08:06)
[2021-01-06] MEDS ORDERED: TRYPAN BLUE 0.5 ML DISP.SYRIN IO ONE (08:07)
[2021-01-06] MEDS ORDERED: CHONDROITIN SU A/HYALUR SOD 1 KIT IO ONE (08:08)
[2021-01-06] MEDS ORDERED: PHENYLEPHRINE/KETOROLAC 4 ML VIAL IO ONE (08:12)
[2021-01-06] MEDS ORDERED: TOBRAMYCIN/DEXAMETHASONE OPHTH. OINTMENT 1 TUBE TP ONE (08:27)
[2021-01-06 08:45] VITALS: TEMP 97.2
[2021-01-06 09:21] VITALS: BP 122/87; PULSE 80
[2021-01-06] MEDS ORDERED: ONDANSETRON 4 MG/2 ML VIAL IVPUSH PRN (10:16)
[2021-01-06] MEDS ORDERED: ACETAMINOPHEN 325 MG TABLET (FP) PO PRN (10:16)
[2021-01-06] MEDS ORDERED: LACTATED RINGERS SOLUTION 1,000 ML IV SCH (10:30)
== END 2021-01-06 09:10 | disposition home or self-care (01) ==
LOC: JASU-SURG 04:18
PROVIDERS: ATTEND Ophthalmology
PROC: 08RK3JZ Replacement of Left Lens with Synthetic Substitute, Percutaneous Approach (ICD-10-PCS; principal; 2021-01-06 08:00)
DX: H25.092 Other age-related incipient cataract, left eye (principal)
CPT/HCPCS: J1097